=== PATIENT | female | born 1980 | race Caucasian/White ===

== ENCOUNTER 2017-05-29 13:59 | Inpatient (IN) | payer MEDICAID ==
[~2017-05-29] VITALS: Ht 149.9 cm; Wt 52.5 kg
[~2017-05-29 13:59] MED LIST: BUME0.5T3 PO; CYCL1TAB18 PO; LISI2.5T47 PO; METO25TA62 PO; POTA20TA53 PO; RIFA550T PO; SODIPOW PO
[2017-05-29 14:47] LABS: Basophils # (auto) 0.1 uL; Basophils % (auto) 0.5 % (0.0-2.0); Eosinophils # (auto) 0.1 uL; Monocytes # (auto) 0.5 uL; Neutrophils # (auto) 9.3 uL; Nucleated Red Blood Cells % 0.7 %
[2017-05-29 14:49] LABS: Eosinophils % (auto) 0.7 % (0.0-7.0); Hematocrit 44.9 % (36.0-46.0); Hemoglobin 13.3 g/dL (12.2-16.2); Lymphocytes # (auto) 1.7 uL; Lymphocytes % (auto) 14.8 % (10.0-50.0); Mean Corpuscular Hemoglobin 21.5 pg (28.0-32.0); Mean Corpuscular Hgb Conc. 29.7 g/dL (32.0-36.0); Mean Corpuscular Volume 72.5 fL (80.0-100.0); Mean Platelet Volume 7.9 fL (6.9-10.8); Platelet Count (auto) 373 10^3/uL (140-450); White Blood Cell 11.6 10^3/uL (4.4-10.8)
[2017-05-29 15:05] LABS: Albumin 2.6 g/dL (3.4-5.0); BUN/Creatinine Ratio 23.6; Bilirubin, Total 0.5 mg/dL (0.2-1.0); Calcium 8.4 mg/dL (8.5-10.1); Potassium 5.3 mmol/L (3.5-5.1); Total Protein 7.7 g/dL (6.4-8.2)
[2017-05-29 15:22] LABS: Red Cell Distribution Width 23.1 % (11.8-14.3)
[2017-05-29 16:05] LABS: Platelet Estimate Adequate
[2017-05-29 16:06] LABS: Anisocytosis Moderate; Hypochromia Moderate; Microcytosis Moderate
[2017-05-29] MEDS ORDERED: SODIUM CHLORIDE 0.9% 500 ML IVB ONE (17:59)
[2017-05-29] MEDS ORDERED: MORPHINE SULF INJ 2 MG/ML SYRINGE 1ML IV ONE (18:00)
[2017-05-29] MEDS ORDERED: ONDANSETRON HCL 4 MG/2 ML VIAL IV ONE (18:00)
[2017-05-29 18:40] LABS: INR 1.23 (0.9-1.15); Partial Thromboplastin Time 30.4 sec (22.64-33.71); Prothrombin Time 13.4 sec (9.37-12.3)
[2017-05-29] MEDS ORDERED: diphenhdrAMINE HCL 50 MG/1 ML VL IV ONE (19:00)
[2017-05-29] MEDS ORDERED: LABETALOL HCL 5 MG/ML 4ML SYRINGE IV ONE (20:00)
[2017-05-29] MEDS ORDERED: cefTRIAXone 1GM/50ML D5W 50 ML IV ONE (21:00)
[2017-05-30] MEDS ORDERED: NITROGLYCERIN 0.4 MG SL TAB SL PRN (00:45)
[2017-05-30] MEDS ORDERED: SODIUM BICARBONATE 8.4 % INJ 50ML VIAL IV ONE (00:45)
[2017-05-30] MEDS ORDERED: ACETAMINOPHEN 500 MG TAB PO PRN (01:30)
[2017-05-30] MEDS ORDERED: TEMAZEPAM 15 MG CAP PO PRN (01:30)
[2017-05-30] MEDS ORDERED: ONDANSETRON HCL 4 MG/2 ML VIAL IV PRN (01:30)
[2017-05-30] MEDS: SODIUM CHLORIDE 0.9% 1,000 ML IV SCH ×3 (01:58→22:10)
[2017-05-30] MEDS: SODIUM BICARBONATE 650 MG TAB PO SCH ×3 (06:27→22:34)
[2017-05-30] MEDS: HYDROcodone-ACET 5/325MG TAB PO PRN ×2 (08:31→18:28)
[2017-05-30 08:32] LABS: Basophils # (auto) 0.1 uL; Basophils % (auto) 0.4 % (0.0-2.0); Eosinophils # (auto) 0.2 uL; Eosinophils % (auto) 1.3 % (0.0-7.0); Hematocrit 38.9 % (36.0-46.0); Hemoglobin 11.5 g/dL (12.2-16.2); Lymphocytes # (auto) 1.1 uL; Mean Corpuscular Hemoglobin 21.3 pg (28.0-32.0); Mean Corpuscular Hgb Conc. 29.7 g/dL (32.0-36.0); Mean Corpuscular Volume 71.9 fL (80.0-100.0); Mean Platelet Volume 8.1 fL (6.9-10.8); Monocytes # (auto) 1.2 uL; Monocytes % (auto) 8.4 % (0.0-12.0); Neutrophils # (auto) 11.4 uL; Neutrophils % (auto) 81.9 % (37.0-80.0); Nucleated Red Blood Cells % 0.5 %; Platelet Count (auto) 230 10^3/uL (140-450); Red Cell Distribution Width 22.4 % (11.8-14.3); White Blood Cell 13.9 10^3/uL (4.4-10.8)
[2017-05-30] MEDS: MORPHINE SULF INJ 2 MG/ML SYRINGE 1ML IV PRN ×3 (09:03→20:09)
[2017-05-30 09:12] LABS: Anisocytosis Slight; Hypochromia Moderate; Microcytosis Moderate; Ovalocytes FEW; Platelet Estimate Adequate
[2017-05-30 09:48] LABS: Albumin 2.1 g/dL (3.4-5.0); BUN/Creatinine Ratio 25.4; Bilirubin, Total 0.4 mg/dL (0.2-1.0); Calcium 7.3 mg/dL (8.5-10.1); Potassium 4.5 mmol/L (3.5-5.1)
[2017-05-30] MEDS: METOPROLOL SUCCINATE XL 50 MG TAB PO SCH (09:55)
[2017-05-30 11:07] VITALS: BP 146/100
[2017-05-30] MEDS ORDERED: diphenhdrAMINE HCL 25 MG CAP PO ONE (13:00)
[2017-05-30 13:05] VITALS: BP 128/83
[2017-05-30] MEDS ORDERED: SODI650T PO (15:22)
[2017-05-30 16:24] VITALS: BP 128/86
[2017-05-30 18:37] LABS: Urine Bilirubin Negative (Negative); Urine Blood 3+ /uL (Negative); Urine Color Yellow (Yellow); Urine Glucose Normal (Normal); Urine Ketone Negative (Negative); Urine Mucus MODERATE (None Seen); Urine Nitrite POSITIVE (Negative); Urine RBC 1110 /hpf (0 - 4); Urine Squamous Epithelial Cell MANY /hpf (<5); Urine Urobilinogen Normal (Negative); Urine WBC Clumps PRESENT /hpf (None Seen); Urine pH 6.5 (5.0-8.0)
[2017-05-30 20:00] VITALS: BP 122/86
[2017-05-30 22:00] VITALS: BP 122/86
[2017-05-30] MEDS: diphenhdrAMINE HCL 25 MG CAP PO PRN (22:48)
[2017-05-31] MEDS: MORPHINE SULF INJ 2 MG/ML SYRINGE 1ML IV PRN ×6 (03:21→21:36)
[2017-05-31 05:16] VITALS: BP 113/74
[2017-05-31] MEDS: SODIUM BICARBONATE 650 MG TAB PO SCH ×3 (06:23→21:36)
[2017-05-31] MEDS: SODIUM CHLORIDE 0.9% 1,000 ML IV SCH ×2 (07:45→17:50)
[2017-05-31 08:42] LABS: Albumin 2.2 g/dL (3.4-5.0); BUN/Creatinine Ratio 23.6; Bilirubin, Total 0.2 mg/dL (0.2-1.0); Calcium 7.5 mg/dL (8.5-10.1); Potassium 4.4 mmol/L (3.5-5.1); Total Protein 6.2 g/dL (6.4-8.2)
[2017-05-31] MEDS ORDERED: IOTHALAMATE MEGLUMINE INJ 250ML BOT UR ONE (09:11)
[2017-05-31 09:19] VITALS: BP 124/82
[2017-05-31 09:52] LABS: Basophils # (auto) 0.1 uL; Basophils % (auto) 1.2 % (0.0-2.0); Eosinophils # (auto) 0.2 uL; Eosinophils % (auto) 3.3 % (0.0-7.0); Hematocrit 33.4 % (36.0-46.0); Hemoglobin 9.6 g/dL (12.2-16.2); Lymphocytes # (auto) 0.9 uL; Lymphocytes % (auto) 12.3 % (10.0-50.0); Mean Corpuscular Hemoglobin 21.5 pg (28.0-32.0); Mean Corpuscular Hgb Conc. 28.7 g/dL (32.0-36.0); Mean Platelet Volume 7.7 fL (6.9-10.8); Monocytes # (auto) 0.4 uL; Neutrophils # (auto) 5.3 uL; Neutrophils % (auto) 77.2 % (37.0-80.0); Nucleated Red Blood Cells % 0.4 %; Platelet Count (auto) 201 10^3/uL (140-450); Red Cell Distribution Width 22.7 % (11.8-14.3); White Blood Cell 6.9 10^3/uL (4.4-10.8)
[2017-05-31 09:54] LABS: Platelet Estimate Adequate
[2017-05-31 09:55] LABS: Burr Cells MODERATE
[2017-05-31 09:56] LABS: Anisocytosis Moderate; Microcytosis Moderate; Ovalocytes FEW
[2017-05-31 09:57] LABS: Hypochromia Moderate; Tear Drop Cells FEW
[2017-05-31] MEDS: METOPROLOL SUCCINATE XL 50 MG TAB PO SCH (10:31)
[2017-05-31 14:38] VITALS: BP 150/104
[2017-05-31 17:37] VITALS: BP 154/110
[2017-05-31 22:00] VITALS: BP 145/90
[2017-06-01] MEDS: MORPHINE SULF INJ 2 MG/ML SYRINGE 1ML IV PRN ×4 (01:24→21:17)
[2017-06-01] MEDS: SODIUM CHLORIDE 0.9% 1,000 ML IV SCH ×2 (04:45→16:50)
[2017-06-01 05:26] VITALS: BP 122/88
[2017-06-01] MEDS: SODIUM BICARBONATE 650 MG TAB PO SCH ×3 (05:34→21:16)
[2017-06-01 07:01] LABS: Basophils # (auto) 0 uL; Basophils % (auto) 0.5 % (0.0-2.0); Eosinophils # (auto) 0.1 uL; Eosinophils % (auto) 1.9 % (0.0-7.0); Hematocrit 30.1 % (36.0-46.0); Hemoglobin 9.2 g/dL (12.2-16.2); Lymphocytes % (auto) 14.2 % (10.0-50.0); Mean Corpuscular Hemoglobin 22.7 pg (28.0-32.0); Mean Corpuscular Hgb Conc. 30.5 g/dL (32.0-36.0); Mean Corpuscular Volume 74.6 fL (80.0-100.0); Monocytes # (auto) 0.5 uL; Monocytes % (auto) 6.8 % (0.0-12.0); Neutrophils # (auto) 5.3 uL; Neutrophils % (auto) 76.6 % (37.0-80.0); Nucleated Red Blood Cells % 0.3 %; Platelet Count (auto) 227 10^3/uL (140-450)
[2017-06-01 07:15] LABS: Red Cell Distribution Width 22.5 % (11.8-14.3)
[2017-06-01 07:21] LABS: Albumin 2.2 g/dL (3.4-5.0); BUN/Creatinine Ratio 21.5; Bilirubin, Total 0.2 mg/dL (0.2-1.0); Calcium 7.5 mg/dL (8.5-10.1); Potassium 4.1 mmol/L (3.5-5.1); Total Protein 6.1 g/dL (6.4-8.2)
[2017-06-01 09:17] VITALS: BP 133/82
[2017-06-01 11:06] LABS: Anisocytosis Moderate; Microcytosis Moderate
[2017-06-01 11:07] LABS: Ovalocytes FEW; Tear Drop Cells FEW
[2017-06-01 11:08] LABS: Hypochromia Moderate
[2017-06-01 11:09] LABS: Schistocytes FEW
[2017-06-01 11:10] LABS: Platelet Estimate Adequate
[2017-06-01 13:00] VITALS: BP 155/94
[2017-06-01 16:48] VITALS: BP 155/112
[2017-06-01] MEDS: METOPROLOL SUCCINATE XL 50 MG TAB PO SCH (16:49)
[2017-06-01 22:00] VITALS: BP 153/107
[2017-06-01] MEDS ORDERED: amLODIPine BESYLATE 5 MG TAB PO SCH (22:00)
[2017-06-02] MEDS: MORPHINE SULF INJ 2 MG/ML SYRINGE 1ML IV PRN ×3 (01:01→09:26)
[2017-06-02] MEDS ORDERED: SODIUM CHLORIDE 0.9% 1,000 ML IV SCH (01:45)
[2017-06-02 05:00] VITALS: BP 152/100
[2017-06-02 06:56] LABS: Basophils # (auto) 0.2 uL; Eosinophils # (auto) 0.2 uL; Eosinophils % (auto) 1.9 % (0.0-7.0); Hematocrit 32.7 % (36.0-46.0); Lymphocytes # (auto) 1.2 uL; Lymphocytes % (auto) 13.7 % (10.0-50.0); Mean Corpuscular Hemoglobin 22.5 pg (28.0-32.0); Mean Corpuscular Hgb Conc. 30.5 g/dL (32.0-36.0); Mean Corpuscular Volume 73.8 fL (80.0-100.0); Monocytes # (auto) 0.6 uL; Monocytes % (auto) 7.1 % (0.0-12.0); Neutrophils # (auto) 6.7 uL; Neutrophils % (auto) 75.3 % (37.0-80.0); Nucleated Red Blood Cells % 0.2 %; Platelet Count (auto) 241 10^3/uL (140-450); White Blood Cell 8.8 10^3/uL (4.4-10.8)
[2017-06-02 06:58] LABS: Red Cell Distribution Width 22.5 % (11.8-14.3)
[2017-06-02 07:09] LABS: BUN/Creatinine Ratio 18.1; Calcium 7.8 mg/dL (8.5-10.1); Potassium 4.6 mmol/L (3.5-5.1)
[2017-06-02 07:51] LABS: Anisocytosis Slight; Hypochromia Moderate; Microcytosis Moderate; Ovalocytes FEW; Platelet Estimate Adequate
[2017-06-02 09:00] VITALS: BP 153/115
[2017-06-02] MEDS: METOPROLOL SUCCINATE XL 50 MG TAB PO SCH (09:39)
[2017-06-02] MEDS: SODIUM BICARBONATE 650 MG TAB PO SCH (09:39)
[2017-06-02] MEDS: diphenhdrAMINE HCL 25 MG CAP PO PRN (09:40)
[2017-06-02] MEDS ORDERED: LABETALOL HCL 5 MG/ML 4ML SYRINGE IV ONE (10:00)
[2017-06-02 11:56] VITALS: BP 155/110
[2017-06-02 13:00] VITALS: BP 173/120
== END 2017-06-02 15:00 | disposition home or self-care (01) | DRG 720 ==
LOC: ER 14:08 → TELE 14:09 → TELE-WESTW 05-30 11:14
PROVIDERS: ADMIT Nurse Practitioner Family; ATTEND Internal Medicine
PROC: BT1BZZZ Fluoroscopy of Bladder and Urethra (ICD-10-PCS; principal; 2017-06-01)
DX: A41.9 Sepsis, unspecified organism (principal); E43 Unspecified severe protein-calorie malnutrition; I13.0 Hypertensive heart and chronic kidney disease with heart failure and stage 1 through stage 4 chronic kidney disease, or unspecified chronic kidney disease; N13.30 Unspecified hydronephrosis; K80.10 Calculus of gallbladder with chronic cholecystitis without obstruction; E83.51 Hypocalcemia; N30.80 Other cystitis without hematuria; M41.9 Scoliosis, unspecified; N18.3 Chronic kidney disease, stage 3 (moderate); N81.10 Cystocele, unspecified; E87.5 Hyperkalemia; B19.20 Unspecified viral hepatitis C without hepatic coma; N31.2 Flaccid neuropathic bladder, not elsewhere classified; E87.6 Hypokalemia; M54.9 Dorsalgia, unspecified; Z68.23 Body mass index [BMI] 23.0-23.9, adult; Z88.1 Allergy status to other antibiotic agents; Z88.0 Allergy status to penicillin; Z88.2 Allergy status to sulfonamides; Z88.8 Allergy status to other drugs, medicaments and biological substances; Z87.440 Personal history of urinary (tract) infections; Z91.19 Patient's noncompliance with other medical treatment and regimen; N39.0 Urinary tract infection, site not specified
CPT/HCPCS: 36415; 71010; 74176; 74430; 80048; 80053; 81001; 81025; 82140; 82150; 83690; 83735; 85025; 85610; 85730; 87086; 94761; 96361; 96365; 96375; J0696; J2405; J3490

== ENCOUNTER 2017-09-24 05:59 | Inpatient (IN) | payer MEDICAID ==
[~2017-09-24] VITALS: Ht 149.9 cm; Wt 40.5 kg
[~2017-09-24 05:59] MED LIST changes: -BUME0.5T3 PO; -CYCL1TAB18 PO; +SODI650T PO; -SODIPOW PO
[2017-09-24 07:14] LABS: Basophils % (auto) 0.5 % (0.0-2.0); Eosinophils # (auto) 0.1 uL; Eosinophils % (auto) 0.9 % (0.0-7.0); Hemoglobin 12.4 g/dL (12.2-16.2); Mean Corpuscular Volume 74.7 fL (80.0-100.0); Monocytes # (auto) 0.6 uL; Nucleated Red Blood Cells % 0.2 %
[2017-09-24 07:16] LABS: Basophils # (auto) 0 uL; Hematocrit 39.8 % (36.0-46.0); Lymphocytes % (auto) 9.4 % (10.0-50.0); Mean Corpuscular Hemoglobin 23.3 pg (28.0-32.0); Mean Corpuscular Hgb Conc. 31.1 g/dL (32.0-36.0); Monocytes % (auto) 5.4 % (0.0-12.0); Neutrophils # (auto) 8.8 uL; Neutrophils % (auto) 83.8 % (37.0-80.0); Platelet Count (auto) 246 10^3/uL (140-450); Red Blood Cells 5.33 10^6/uL (4.0-5.20); White Blood Cell 10.5 10^3/uL (4.4-10.8)
[2017-09-24 07:17] LABS: Red Cell Distribution Width 21.9 % (11.8-14.3)
[2017-09-24 07:30] LABS: Albumin 3.4 g/dL (3.4-5.0); Calcium 7.7 mg/dL (8.5-10.1)
[2017-09-24 07:33] LABS: Bilirubin, Total 0.3 mg/dL (0.2-1.0); Total Protein 7.8 g/dL (6.4-8.2)
[2017-09-24 07:37] LABS: BUN/Creatinine Ratio 26.9; Potassium 2.6 mmol/L (3.5-5.1)
[2017-09-24 07:45] LABS: INR 1.03 (0.9-1.15); Partial Thromboplastin Time 34.4 sec (22.64-33.71); Prothrombin Time 11.2 sec (9.37-12.3)
[2017-09-24] MEDS ORDERED: SODIUM CHLORIDE 0.9% 500 ML IVB ONE (08:30)
[2017-09-24] MEDS ORDERED: POTASSIUM CHL 20MEQ/100ML 100 ML IV ONE (08:45)
[2017-09-24] MEDS ORDERED: SODIUM BICARBONATE 8.4 % INJ 50ML VIAL IV ONE (10:00)
[2017-09-24] MEDS ORDERED: LACTULOSE 20Gm/30ML SOLN PO ONE (10:00)
[2017-09-24] MEDS ORDERED: SODIUM BICARBONATE 50ML VIAL 50 ML in D5W 5% 1,000 ML IV SCH (10:00)
[2017-09-24] MEDS: LACTULOSE 20Gm/30ML SOLN PO SCH ×4 (10:00→22:14)
[2017-09-24] MEDS ORDERED: TEMAZEPAM 15 MG CAP PO PRN (10:15)
[2017-09-24] MEDS ORDERED: PANTOPRAZOLE 40 MG/10 ML VIAL IV ONE (10:15)
[2017-09-24] MEDS ORDERED: NITROGLYCERIN 0.4 MG SL TAB SL PRN (10:15)
[2017-09-24] MEDS ORDERED: LACTULOSE 20Gm/30ML SOLN PO PRN (10:15)
[2017-09-24] MEDS ORDERED: MORPHINE SULFATE 4 MG/ML SYR/VIAL IV PRN ×2 (10:15)
[2017-09-24 10:32] LABS: Amylase 107 U/L (25-115); Lipase 880 U/L (73-393)
[2017-09-24] MEDS ORDERED: TRAM50TA2 PO (11:43)
[2017-09-24] MEDS ORDERED: METO25TA5 PO (11:43)
[2017-09-24] MEDS ORDERED: HYDR200T36 PO (11:45)
[2017-09-24] MEDS: LABETALOL HCL 5 MG/ML ML 20ML VIAL IV PRN (11:46)
[2017-09-24] MEDS: metroNIDAZOLE 500MG/100ML 100 ML IV SCH ×2 (12:00→17:26)
[2017-09-24] MEDS ORDERED: CEFTRIAXONE SODIUM 2 GM in D5W 5% 50 ML IV ONE (12:30)
[2017-09-24] MEDS: MORPHINE SULFATE 4 MG/ML SYR/VIAL IV PRN (13:35)
[2017-09-24 14:25] LABS: Urine Bacteria MOD /hpf (None Seen); Urine Blood 1+ /uL (Negative); Urine Mucus FEW (None Seen); Urine Specific Gravity 1.009 (1.001-1.035); Urine WBC 166 /hpf (0 - 5); Urine WBC Clumps PRESENT /hpf (None Seen)
[2017-09-24] MEDS: PROMETHAZINE HCL 25 MG/ML 1ML IV PRN (17:22)
[2017-09-24] MEDS: DEXTROSE IV SCH (17:39)
[2017-09-24] MEDS: SODIUM BICARBONATE IV SCH (17:39)
[2017-09-25] MEDS ORDERED: metroNIDAZOLE 500 MG TAB PO ONE (01:00)
[2017-09-25] MEDS: LACTULOSE 20Gm/30ML SOLN PO SCH ×6 (03:15→21:28)
[2017-09-25 06:24] LABS: Basophils # (auto) 0 uL; Lymphocytes # (auto) 0.4 uL; Monocytes # (auto) 0.7 uL
[2017-09-25 06:27] LABS: Basophils % (auto) 0.5 % (0.0-2.0); Eosinophils # (auto) 0.2 uL; Eosinophils % (auto) 2.2 % (0.0-7.0); Hematocrit 30.8 % (36.0-46.0); Lymphocytes % (auto) 5.8 % (10.0-50.0); Mean Corpuscular Hemoglobin 23.2 pg (28.0-32.0); Mean Corpuscular Hgb Conc. 32.4 g/dL (32.0-36.0); Mean Corpuscular Volume 71.6 fL (80.0-100.0); Monocytes % (auto) 10.3 % (0.0-12.0); Neutrophils # (auto) 5.6 uL; Neutrophils % (auto) 81.2 % (37.0-80.0); Nucleated Red Blood Cells % 0.2 %; Platelet Count (auto) 249 10^3/uL (140-450); Red Blood Cells 4.31 10^6/uL (4.0-5.20); White Blood Cell 6.9 10^3/uL (4.4-10.8)
[2017-09-25 06:40] LABS: Red Cell Distribution Width 22.3 % (11.8-14.3)
[2017-09-25] MEDS: PROMETHAZINE HCL 25 MG/ML 1ML IV PRN ×4 (06:44→22:22)
[2017-09-25 06:46] LABS: Albumin 2.9 g/dL (3.4-5.0); BUN/Creatinine Ratio 23.5; Bilirubin, Total 0.4 mg/dL (0.2-1.0); Total Protein 6.5 g/dL (6.4-8.2)
[2017-09-25 06:59] LABS: Potassium 1.8 mmol/L (3.5-5.1)
[2017-09-25] MEDS ORDERED: POTASSIUM CHLORIDE 60 MEQ, LIDOCAINE 1% (LOCAL ANESTH.) 6 ML in SODIUM CHL 0.9% 500 ML IV ONE (07:30)
[2017-09-25] MEDS: DEXTROSE IV SCH ×2 (08:23→17:25)
[2017-09-25] MEDS: SODIUM BICARBONATE IV SCH ×2 (08:23→17:25)
[2017-09-25] MEDS: cefTRIAXone 1GM/10ml IVPUSH 10 ML IV SCH (10:05)
[2017-09-25] MEDS: PANTOPRAZOLE 40 MG/10 ML VIAL IV SCH (10:11)
[2017-09-25] MEDS: ENOXAPARIN SOD 30 MG/0.3 ML SYRINGE SC SCH (10:13)
[2017-09-25] MEDS: MORPHINE SULFATE 4 MG/ML SYR/VIAL IV PRN ×2 (16:56→22:21)
[2017-09-25] MEDS ORDERED: POTASSIUM CHL 10% (20 MEQ/15ML) 15ml ORAL SOLN NG ONE (17:00)
[2017-09-25] MEDS ORDERED: POTASSIUM CHLORIDE 40 MEQ, LIDOCAINE 1% (LOCAL ANESTH.) 4 ML in SODIUM CHL 0.9% 100 ML IV ONE ×2 (17:00→22:00)
[2017-09-25] MEDS: LABETALOL HCL 5 MG/ML ML 20ML VIAL IV PRN ×3 (17:01→23:00)
[2017-09-25] MEDS: SOD CHL 0.45% WITH 20MEQ KCL 1,000 ML IV SCH (20:39)
[2017-09-25] MEDS ORDERED: POTASSIUM CHL 20 Meq TABLET PO ONE ×2 (21:34→21:39)
[2017-09-25] MEDS ORDERED: POTASSIUM CHL 20MEQ/100ML 200 ML IV ONE (21:52)
[2017-09-25] MEDS ORDERED: LIDOCAINE 1% HCL (LOCAL ANESTH.) INJ 20ML MDV ONE (21:52)
[2017-09-25] MEDS ORDERED: POTASSIUM CHL 10% (20 MEQ/15ML) 15ml ORAL SOLN PO ONE (22:00)
[2017-09-26] MEDS: LACTULOSE 20Gm/30ML SOLN PO SCH ×6 (01:22→22:00)
[2017-09-26] MEDS: LABETALOL HCL 5 MG/ML ML 20ML VIAL IV PRN ×2 (01:39→11:47)
[2017-09-26] MEDS: LORazepam 0.5 MG TAB PO PRN (01:44)
[2017-09-26] MEDS: SOD CHL 0.45% WITH 20MEQ KCL 1,000 ML IV SCH ×3 (03:00→20:35)
[2017-09-26] MEDS: PROMETHAZINE HCL 25 MG/ML 1ML IV PRN (03:37)
[2017-09-26] MEDS: MORPHINE SULFATE 4 MG/ML SYR/VIAL IV PRN (03:37)
[2017-09-26 07:32] LABS: Hemoglobin 8.7 g/dL (12.2-16.2); Red Blood Cells 3.76 10^6/uL (4.0-5.20)
[2017-09-26 07:34] LABS: Hematocrit 27.4 % (36.0-46.0); Mean Corpuscular Hemoglobin 23.3 pg (28.0-32.0); Mean Corpuscular Hgb Conc. 31.9 g/dL (32.0-36.0); Platelet Count (auto) 179 10^3/uL (140-450); White Blood Cell 4.2 10^3/uL (4.4-10.8)
[2017-09-26 07:35] LABS: Red Cell Distribution Width 21.8 % (11.8-14.3)
[2017-09-26 07:37] LABS: Band Neutrophils % (manual) 0; Basophils % (manual) 0 (0.0-2.0); Metamyelocytes % 0; Myelocytes % 0; Promyelocytes % 0
[2017-09-26 07:38] LABS: Blast Cells 0; Reactive Lymphocytes 0
[2017-09-26 08:11] LABS: Albumin 2.6 g/dL (3.4-5.0); BUN/Creatinine Ratio 18.1; Bilirubin, Total 0.3 mg/dL (0.2-1.0); Calcium 6.6 mg/dL (8.5-10.1); Potassium 3.2 mmol/L (3.5-5.1)
[2017-09-26] MEDS: PANTOPRAZOLE 40 MG/10 ML VIAL IV SCH (09:26)
[2017-09-26] MEDS: cefTRIAXone 1GM/10ml IVPUSH 10 ML IV SCH (09:26)
[2017-09-26] MEDS: ENOXAPARIN SOD 30 MG/0.3 ML SYRINGE SC SCH (09:27)
[2017-09-26] MEDS ORDERED: POTASSIUM CHL 20 Meq TABLET PO ONE ×2 (09:45→09:47)
[2017-09-26] MEDS ORDERED: HYDROcodone-ACET 5/325MG TAB PO PRN (10:00)
[2017-09-26 10:58] LABS: Eosinophils % (manual) 6 (0-7); Lymphocytes % (manual) 25 (10.0-50.0); Monocytes % (manual) 17 (0-12)
[2017-09-26 13:00] VITALS: BP 152/98
[2017-09-26] MEDS: HYDROcodone-ACET 5/325MG TAB PO PRN (15:17)
[2017-09-26 17:00] VITALS: BP 143/97
[2017-09-26 21:51] VITALS: BP 121/79
[2017-09-27] MEDS: LACTULOSE 20Gm/30ML SOLN PO SCH ×6 (02:00→22:00)
[2017-09-27] MEDS: SOD CHL 0.45% WITH 20MEQ KCL 1,000 ML IV SCH (04:40)
[2017-09-27 04:51] VITALS: BP 138/88
[2017-09-27] MEDS: HYDROcodone-ACET 5/325MG TAB PO PRN ×3 (06:35→22:13)
[2017-09-27 07:09] LABS: Basophils # (auto) 0 uL; Basophils % (auto) 0.4 % (0.0-2.0); Eosinophils # (auto) 0.3 uL; Hemoglobin 9.8 g/dL (12.2-16.2); Lymphocytes # (auto) 0.8 uL; Monocytes # (auto) 0.4 uL; Neutrophils # (auto) 3.1 uL; Nucleated Red Blood Cells % 0.1 %
[2017-09-27 07:16] LABS: Albumin 2.7 g/dL (3.4-5.0); Calcium 8.1 mg/dL (8.5-10.1); Potassium 4.9 mmol/L (3.5-5.1)
[2017-09-27 07:19] LABS: BUN/Creatinine Ratio 18.7; Eosinophils % (auto) 5.6 % (0.0-7.0); Hematocrit 30.9 % (36.0-46.0); Lymphocytes % (auto) 16.6 % (10.0-50.0); Mean Corpuscular Hemoglobin 23.3 pg (28.0-32.0); Mean Corpuscular Hgb Conc. 31.6 g/dL (32.0-36.0); Mean Corpuscular Volume 73.5 fL (80.0-100.0); Monocytes % (auto) 8.5 % (0.0-12.0); Neutrophils % (auto) 68.9 % (37.0-80.0); Platelet Count (auto) 199 10^3/uL (140-450); White Blood Cell 4.5 10^3/uL (4.4-10.8)
[2017-09-27 07:22] LABS: Red Cell Distribution Width 23.1 % (11.8-14.3)
[2017-09-27 07:24] LABS: Bilirubin, Total 0.4 mg/dL (0.2-1.0); Total Protein 6.2 g/dL (6.4-8.2)
[2017-09-27 08:00] VITALS: BP 156/107
[2017-09-27] MEDS: ENOXAPARIN SOD 30 MG/0.3 ML SYRINGE SC SCH (09:08)
[2017-09-27] MEDS: SODIUM BICARBONATE 650 MG TAB PO SCH ×3 (09:19→22:13)
[2017-09-27] MEDS: PANTOPRAZOLE 40 MG/10 ML VIAL IV SCH (09:19)
[2017-09-27] MEDS: cefTRIAXone 1GM/10ml IVPUSH 10 ML IV SCH (09:19)
[2017-09-27] MEDS: SOD CHL 0.45% 1,000 ML IV SCH (11:08)
[2017-09-27 12:00] VITALS: BP 159/114
[2017-09-27] MEDS: LABETALOL HCL 5 MG/ML ML 20ML VIAL IV PRN ×3 (16:13→22:14)
[2017-09-27 17:00] VITALS: BP 161/123
[2017-09-27] MEDS: LORazepam 0.5 MG TAB PO PRN (17:36)
[2017-09-27 22:17] VITALS: BP 160/107
[2017-09-28] MEDS: LACTULOSE 20Gm/30ML SOLN PO SCH ×4 (02:00→14:00)
[2017-09-28] MEDS: SOD CHL 0.45% 1,000 ML IV SCH ×2 (04:30→14:30)
[2017-09-28 05:00] VITALS: BP 142/94
[2017-09-28] MEDS: SODIUM BICARBONATE 650 MG TAB PO SCH ×2 (06:10→14:00)
[2017-09-28] MEDS: LORazepam 0.5 MG TAB PO PRN (06:25)
[2017-09-28] MEDS: HYDROcodone-ACET 5/325MG TAB PO PRN ×2 (06:25→12:37)
[2017-09-28] MEDS: LABETALOL HCL 5 MG/ML ML 20ML VIAL IV PRN (08:12)
[2017-09-28 08:40] VITALS: BP 171/116
[2017-09-28] MEDS: cefTRIAXone 1GM/10ml IVPUSH 10 ML IV SCH (09:01)
[2017-09-28] MEDS: ENOXAPARIN SOD 30 MG/0.3 ML SYRINGE SC SCH (09:01)
[2017-09-28] MEDS: PANTOPRAZOLE 40 MG/10 ML VIAL IV SCH (09:01)
[2017-09-28 12:50] LABS: Basophils # (auto) 0 uL; Eosinophils # (auto) 0.3 uL; Lymphocytes # (auto) 0.8 uL; Lymphocytes % (auto) 14.6 % (10.0-50.0); Monocytes # (auto) 0.5 uL; Nucleated Red Blood Cells % 0.1 %; White Blood Cell 5.6 10^3/uL (4.4-10.8)
[2017-09-28 12:52] LABS: Basophils % (auto) 0.2 % (0.0-2.0); Hematocrit 33.4 % (36.0-46.0); Hemoglobin 10.2 g/dL (12.2-16.2); Mean Corpuscular Hemoglobin 22.9 pg (28.0-32.0); Mean Corpuscular Hgb Conc. 30.7 g/dL (32.0-36.0); Mean Corpuscular Volume 74.7 fL (80.0-100.0); Monocytes % (auto) 9.7 % (0.0-12.0); Neutrophils # (auto) 3.9 uL; Neutrophils % (auto) 70.5 % (37.0-80.0); Platelet Count (auto) 199 10^3/uL (140-450); Red Blood Cells 4.47 10^6/uL (4.0-5.20)
[2017-09-28 12:55] LABS: Red Cell Distribution Width 23.3 % (11.8-14.3)
[2017-09-28 13:00] VITALS: BP 166/109
[2017-09-28 13:07] LABS: BUN/Creatinine Ratio 18.9; Calcium 7.4 mg/dL (8.5-10.1)
== END 2017-09-28 15:28 | disposition home or self-care (01) | DRG 469 ==
LOC: ER 05:59 → TELE 06:00 → TELE-CENTR 09-26 12:20
PROVIDERS: ADMIT Internal Medicine; ATTEND Internal Medicine
DX: N17.9 Acute kidney failure, unspecified (principal); E87.2 Acidosis; E87.0 Hyperosmolality and hypernatremia; M32.9 Systemic lupus erythematosus, unspecified; E87.8 Other disorders of electrolyte and fluid balance, not elsewhere classified; E86.0 Dehydration; N13.30 Unspecified hydronephrosis; K72.90 Hepatic failure, unspecified without coma; E83.51 Hypocalcemia; I13.10 Hypertensive heart and chronic kidney disease without heart failure, with stage 1 through stage 4 chronic kidney disease, or unspecified chronic kidney disease; N18.9 Chronic kidney disease, unspecified; N39.0 Urinary tract infection, site not specified; K59.00 Constipation, unspecified; N05.9 Unspecified nephritic syndrome with unspecified morphologic changes; F41.9 Anxiety disorder, unspecified; G47.00 Insomnia, unspecified; E87.6 Hypokalemia; B19.20 Unspecified viral hepatitis C without hepatic coma; K74.60 Unspecified cirrhosis of liver; M06.9 Rheumatoid arthritis, unspecified; M19.90 Unspecified osteoarthritis, unspecified site; Z88.2 Allergy status to sulfonamides; Z88.0 Allergy status to penicillin; Z88.1 Allergy status to other antibiotic agents; Z79.899 Other long term (current) drug therapy
CPT/HCPCS: 36415; 36600; 71046; 74176; 76775; 80048; 80053; 80061; 81001; 81025; 82140; 82150; 82570; 82805; 83690; 83735; 83880; 84132; 84156; 84443; 84702; 85007; 85025; 85027; 85045; 85610; 85652; 85730; 87040; 87086; 94761; 96361; 96365; 96372; 96375; C9113; J0696; J2001; J3480; J3490; J7060

== ENCOUNTER 2017-12-02 07:37 | Inpatient (IN) | payer MEDICAID ==
[~2017-12-02] VITALS: Ht 149.9 cm; Wt 48.5 kg
[~2017-12-02 07:37] MED LIST changes: +HYDR200T36 PO; -LISI2.5T47 PO; +METO25TA5 PO; -METO25TA62 PO; -RIFA550T PO; +TRAM50TA2 PO
[2017-12-02] MEDS ORDERED: SODIUM CHLORIDE 0.9% 1,000 ML IV ONE (08:15)
[2017-12-02 09:38] LABS: Hemoglobin 11.7 g/dL (12.2-16.2); Monocytes # (auto) 0.3 uL
[2017-12-02 09:40] LABS: Basophils # (auto) 0 uL; Basophils % (auto) 0.4 % (0.0-2.0); Eosinophils # (auto) 0 uL; Eosinophils % (auto) 0.4 % (0.0-7.0); Hematocrit 38.9 % (36.0-46.0); Lymphocytes # (auto) 0.6 uL; Mean Corpuscular Hemoglobin 24.5 pg (28.0-32.0); Mean Corpuscular Hgb Conc. 30.2 g/dL (32.0-36.0); Mean Corpuscular Volume 81.2 fL (80.0-100.0); Monocytes % (auto) 3.2 % (0.0-12.0); Neutrophils # (auto) 9.5 uL; Nucleated Red Blood Cells % 0.1 %; Platelet Count (auto) 265 10^3/uL (140-450); White Blood Cell 10.6 10^3/uL (4.4-10.8)
[2017-12-02 09:48] LABS: INR 0.95 (0.9-1.15); Partial Thromboplastin Time 32.6 sec (22.64-33.71); Prothrombin Time 10.3 sec (9.37-12.3)
[2017-12-02 09:53] LABS: Red Cell Distribution Width 21.4 % (11.8-14.3)
[2017-12-02 09:54] LABS: Albumin 3.4 g/dL (3.4-5.0); BUN/Creatinine Ratio 28.6; Calcium 7.2 mg/dL (8.5-10.1); Magnesium 1.7 mg/dL (1.6-2.6)
[2017-12-02 09:57] LABS: Bilirubin, Total 0.4 mg/dL (0.2-1.0); Total Protein 7.6 g/dL (6.4-8.2)
[2017-12-02 10:00] LABS: Potassium 2.8 mmol/L (3.5-5.1)
[2017-12-02] MEDS ORDERED: DEXTROSE (50%) 50ML SYRG IV PRN (11:00)
[2017-12-02] MEDS ORDERED: cefTRIAXone 1GM/10ml IVPUSH 10 ML IV ONE (11:00)
[2017-12-02] MEDS ORDERED: MORPHINE SULFATE 8mg/ml INJ SDV IV PRN ×2 (11:00)
[2017-12-02] MEDS ORDERED: NITROGLYCERIN 0.4 MG SL TAB SL PRN (11:00)
[2017-12-02] MEDS ORDERED: LACTULOSE 20Gm/30ML SOLN PO ONE (11:15)
[2017-12-02] MEDS: SODIUM CHLORIDE 0.9% 1,000 ML IV SCH ×2 (11:16→17:39)
[2017-12-02 11:23] LABS: Amylase 72 U/L (25-115); Lipase 299 U/L (73-393)
[2017-12-02] MEDS ORDERED: POTASSIUM CHL 20 Meq TABLET PO ONE (11:45)
[2017-12-02] MEDS: MORPHINE SULFATE 8mg/ml INJ SDV IV PRN ×2 (12:08→22:02)
[2017-12-02] MEDS: PROMETHAZINE HCL 25 MG/ML 1ML IV PRN (12:09)
[2017-12-02] MEDS: ACCU-CHEK COMFORT CURVE STRIP VI SCH ×3 (12:13→21:18)
[2017-12-02] MEDS: METOPROLOL TARTRATE 25 MG TAB PO ONE ×2 (12:30→17:18)
[2017-12-02] MEDS ORDERED: HYDROXYCHLOROQUINE SULFATE 200 MG TAB PO ONE (12:30)
[2017-12-02] MEDS ORDERED: SODIUM BICARBONATE 8.4 % INJ 50ML VIAL IV ONE (12:45)
[2017-12-02] MEDS: POTASSIUM CHL 20MEQ/100ML 100 ML IV SCH ×2 (14:28→16:00)
[2017-12-02] MEDS: LACTULOSE 20Gm/30ML SOLN PO SCH ×3 (14:30→22:00)
[2017-12-02] MEDS: SODIUM BICARBONATE 650 MG TAB PO SCH ×2 (14:30→22:13)
[2017-12-02] MEDS: METOPROLOL TARTRATE 25 MG TAB PO SCH ×2 (22:01→23:14)
[2017-12-02 23:12] LABS: Urine Bacteria MANY /hpf (None Seen); Urine Blood 2+ /uL (Negative); Urine Specific Gravity 1.016 (1.001-1.035); Urine WBC 1118 /hpf (0 - 5); Urine WBC Clumps PRESENT /hpf (None Seen)
[2017-12-03] VITALS (12 sets, daily range): BP systolic 125–159; BP diastolic 70–94
[2017-12-03] MEDS: LACTULOSE 20Gm/30ML SOLN PO SCH ×6 (02:00→21:12)
[2017-12-03] MEDS: ACCU-CHEK COMFORT CURVE STRIP VI SCH ×6 (03:03→20:00)
[2017-12-03] MEDS ORDERED: NALOXONE HCL 0.4 MG/ML VIAL ONE (03:15)
[2017-12-03] MEDS ORDERED: ALBUMIN 5% 250 ML IV ONE ×2 (03:22→03:30)
[2017-12-03] MEDS ORDERED: NALOXONE HCL 0.4 MG/ML VIAL IV ONE (03:30)
[2017-12-03 04:11] LABS: Basophils # (auto) 0.1 uL; Basophils % (auto) 0.5 % (0.0-2.0); Eosinophils # (auto) 0.1 uL; Eosinophils % (auto) 1.2 % (0.0-7.0); Hematocrit 38.7 % (36.0-46.0); Hemoglobin 11.8 g/dL (12.2-16.2); Lymphocytes # (auto) 0.7 uL; Lymphocytes % (auto) 6.4 % (10.0-50.0); Mean Corpuscular Hemoglobin 24.2 pg (28.0-32.0); Mean Corpuscular Hgb Conc. 30.4 g/dL (32.0-36.0); Mean Corpuscular Volume 79.5 fL (80.0-100.0); Monocytes # (auto) 0.7 uL; Monocytes % (auto) 6.6 % (0.0-12.0); Neutrophils # (auto) 9.4 uL; Neutrophils % (auto) 85.3 % (37.0-80.0); Nucleated Red Blood Cells % 0.2 %; Platelet Count (auto) 251 10^3/uL (140-450); Red Blood Cells 4.87 10^6/uL (4.0-5.20); White Blood Cell 10.9 10^3/uL (4.4-10.8)
[2017-12-03 04:12] LABS: Red Cell Distribution Width 22.1 % (11.8-14.3)
[2017-12-03 04:20] LABS: Albumin 3.4 g/dL (3.4-5.0); Calcium 7.2 mg/dL (8.5-10.1); Potassium 3.1 mmol/L (3.5-5.1)
[2017-12-03 04:23] LABS: BUN/Creatinine Ratio 30.6; Bilirubin, Total 0.4 mg/dL (0.2-1.0); Total Protein 7.3 g/dL (6.4-8.2)
[2017-12-03] MEDS ORDERED: SODIUM BICARBONATE 50ML VIAL 100 ML in D5W 5% 1,000 ML IV SCH (04:45)
[2017-12-03] MEDS ORDERED: POTASSIUM CHLORIDE 20 MEQ, LIDOCAINE 1% (LOCAL ANESTH.) 2 ML in SODIUM CHL 0.9% 100 ML IV ONE (05:00)
[2017-12-03] MEDS ORDERED: SODIUM BICARBONATE 8.4% INJ 50ML SYRINGE ONE (05:00)
[2017-12-03] MEDS: SODIUM BICARBONATE 650 MG TAB PO SCH ×3 (05:33→21:12)
[2017-12-03 08:23] LABS: Cholesterol < 50 mg/dL (< 200); HDL Cholesterol 17 mg/dL (40-59); LDL Cholesterol 27 mg/dL (< 100); Triglycerides 39 mg/dL (< 150)
[2017-12-03] MEDS ORDERED: SODIUM BICARBONATE 50ML VIAL 150 ML in D5W 5% 1,000 ML IV SCH (11:15)
[2017-12-03] MEDS: cefTRIAXone 1GM/10ml IVPUSH 10 ML IV SCH (11:34)
[2017-12-03] MEDS: HYDROXYCHLOROQUINE SULFATE 200 MG TAB PO SCH (11:35)
[2017-12-03] MEDS: METOPROLOL TARTRATE 25 MG TAB PO SCH ×2 (11:35→21:12)
[2017-12-03] MEDS: POTASSIUM CHL 20 Meq TABLET PO SCH (11:35)
[2017-12-03] MEDS: SODIUM BICARBONATE 50ML VIAL 75 ML in D5W 5% 1,000 ML IV SCH ×2 (18:04→22:25)
[2017-12-04] VITALS (7 sets, daily range): BP systolic 147–163; BP diastolic 87–98
[2017-12-04] MEDS: LACTULOSE 20Gm/30ML SOLN PO SCH ×7 (02:00→22:27)
[2017-12-04] MEDS: ACCU-CHEK COMFORT CURVE STRIP VI SCH ×7 (04:00→23:46)
[2017-12-04] MEDS: SODIUM BICARBONATE 650 MG TAB PO SCH ×3 (05:34→21:23)
[2017-12-04] MEDS: SODIUM BICARBONATE 50ML VIAL 75 ML in D5W 5% 1,000 ML IV SCH ×3 (08:11→20:22)
[2017-12-04] MEDS: PROMETHAZINE HCL 25 MG/ML 1ML IV PRN (08:32)
[2017-12-04] MEDS: cefTRIAXone 1GM/10ml IVPUSH 10 ML IV SCH (09:00)
[2017-12-04] MEDS ORDERED: cloNIDine HCL 0.1 MG TAB PO PRN (09:45)
[2017-12-04] MEDS: HYDROXYCHLOROQUINE SULFATE 200 MG TAB PO SCH (10:00)
[2017-12-04] MEDS: traMADol HCL 50 MG TAB PO PRN ×3 (10:02→21:32)
[2017-12-04] MEDS: METOPROLOL TARTRATE 25 MG TAB PO SCH ×2 (10:02→21:27)
[2017-12-04] MEDS: POTASSIUM CHL 20 Meq TABLET PO SCH (10:02)
[2017-12-04 15:24] LABS: Basophils # (auto) 0 uL; Basophils % (auto) 0.4 % (0.0-2.0); Eosinophils # (auto) 0.1 uL; Eosinophils % (auto) 1.6 % (0.0-7.0); Hematocrit 33.5 % (36.0-46.0); Hemoglobin 10.5 g/dL (12.2-16.2); Lymphocytes # (auto) 0.6 uL; Lymphocytes % (auto) 8.3 % (10.0-50.0); Mean Corpuscular Hemoglobin 24.4 pg (28.0-32.0); Mean Corpuscular Hgb Conc. 31.3 g/dL (32.0-36.0); Monocytes # (auto) 1.1 uL; Monocytes % (auto) 14.7 % (0.0-12.0); Neutrophils # (auto) 5.6 uL; Nucleated Red Blood Cells % 0.3 %; Platelet Count (auto) 230 10^3/uL (140-450); Red Blood Cells 4.29 10^6/uL (4.0-5.20); White Blood Cell 7.5 10^3/uL (4.4-10.8)
[2017-12-04 15:56] LABS: BUN/Creatinine Ratio 18.1; Bilirubin, Total 0.4 mg/dL (0.2-1.0); Calcium 6.7 mg/dL (8.5-10.1); Magnesium 1.4 mg/dL (1.6-2.6); Total Protein 6.5 g/dL (6.4-8.2)
[2017-12-04 15:58] LABS: Potassium 2.3 mmol/L (3.5-5.1)
[2017-12-04] MEDS ORDERED: POTASSIUM CHL 20 Meq TABLET PO ONE (16:45)
[2017-12-04] MEDS: TEMAZEPAM 15 MG CAP PO PRN (21:23)
[2017-12-05] MEDS: LACTULOSE 20Gm/30ML SOLN PO SCH ×6 (01:35→20:38)
[2017-12-05] MEDS: SODIUM BICARBONATE 50ML VIAL 75 ML in D5W 5% 1,000 ML IV SCH ×2 (03:05→10:15)
[2017-12-05] MEDS: ACCU-CHEK COMFORT CURVE STRIP VI SCH ×6 (03:51→23:36)
[2017-12-05] MEDS: SODIUM BICARBONATE 650 MG TAB PO SCH ×3 (05:58→21:35)
[2017-12-05] MEDS: traMADol HCL 50 MG TAB PO PRN ×3 (05:58→21:36)
[2017-12-05 06:00] LABS: Basophils # (auto) 0 uL; Eosinophils # (auto) 0.1 uL; Hemoglobin 8.8 g/dL (12.2-16.2); Lymphocytes # (auto) 0.9 uL; Monocytes # (auto) 0.8 uL; White Blood Cell 5.1 10^3/uL (4.4-10.8)
[2017-12-05 06:01] LABS: BUN/Creatinine Ratio 19.7
[2017-12-05 06:02] LABS: Basophils % (auto) 0.5 % (0.0-2.0); Eosinophils % (auto) 2.3 % (0.0-7.0); Hematocrit 26.7 % (36.0-46.0); Lymphocytes % (auto) 16.8 % (10.0-50.0); Mean Corpuscular Volume 75.3 fL (80.0-100.0); Monocytes % (auto) 15.7 % (0.0-12.0); Neutrophils # (auto) 3.3 uL; Neutrophils % (auto) 64.7 % (37.0-80.0); Nucleated Red Blood Cells % 0.3 %; Platelet Count (auto) 186 10^3/uL (140-450); Red Blood Cells 3.54 10^6/uL (4.0-5.20)
[2017-12-05 06:05] VITALS: BP 138/91
[2017-12-05 06:05] LABS: Mean Corpuscular Hemoglobin 25.3 pg (28.0-32.0); Red Cell Distribution Width 20.8 % (11.8-14.3)
[2017-12-05 06:15] LABS: Calcium 5.7 mg/dL (8.5-10.1); Potassium 2.4 mmol/L (3.5-5.1)
[2017-12-05 09:00] VITALS: BP 136/95
[2017-12-05] MEDS: POTASSIUM CHL 20 Meq TABLET PO SCH (09:54)
[2017-12-05] MEDS: HYDROXYCHLOROQUINE SULFATE 200 MG TAB PO SCH (09:54)
[2017-12-05] MEDS: METOPROLOL TARTRATE 25 MG TAB PO SCH ×2 (09:54→21:36)
[2017-12-05] MEDS: cefTRIAXone 1GM/10ml IVPUSH 10 ML IV SCH (09:54)
[2017-12-05 13:00] VITALS: BP 141/95
[2017-12-05 17:00] VITALS: BP 150/102
[2017-12-05] MEDS ORDERED: POTASSIUM CHL 20 Meq TABLET PO ONE (17:00)
[2017-12-05] MEDS: MAGNESIUM SULFATE 1GM/100ML 100 ML IV SCH ×2 (17:13→19:03)
[2017-12-05] MEDS: CALCIUM CARB 500 MG CHEW TAB PO SCH (17:16)
[2017-12-05] MEDS: D5W/SOD CHL 0.45% 1,000 ML IV SCH (17:20)
[2017-12-05 22:00] VITALS: BP 154/92
[2017-12-06] MEDS: D5W/SOD CHL 0.45% 1,000 ML IV SCH ×3 (01:19→17:03)
[2017-12-06] MEDS: LACTULOSE 20Gm/30ML SOLN PO SCH ×6 (02:00→22:00)
[2017-12-06] MEDS: ACCU-CHEK COMFORT CURVE STRIP VI SCH ×5 (03:46→20:00)
[2017-12-06 05:21] VITALS: BP 152/98
[2017-12-06] MEDS: SODIUM BICARBONATE 650 MG TAB PO SCH ×3 (05:38→22:28)
[2017-12-06 06:51] LABS: Basophils # (auto) 0 uL; Eosinophils # (auto) 0.1 uL; Hemoglobin 9.5 g/dL (12.2-16.2); Lymphocytes # (auto) 0.6 uL; Monocytes # (auto) 0.7 uL
[2017-12-06 06:54] LABS: Basophils % (auto) 0.4 % (0.0-2.0); Eosinophils % (auto) 2.2 % (0.0-7.0); Hematocrit 29.3 % (36.0-46.0); Lymphocytes % (auto) 13.8 % (10.0-50.0); Mean Corpuscular Hemoglobin 24.6 pg (28.0-32.0); Mean Corpuscular Hgb Conc. 32.3 g/dL (32.0-36.0); Mean Corpuscular Volume 76.3 fL (80.0-100.0); Neutrophils % (auto) 67.6 % (37.0-80.0); Nucleated Red Blood Cells % 0.2 %; Platelet Count (auto) 176 10^3/uL (140-450); Red Blood Cells 3.84 10^6/uL (4.0-5.20); White Blood Cell 4.4 10^3/uL (4.4-10.8)
[2017-12-06 07:01] LABS: BUN/Creatinine Ratio 16.4
[2017-12-06 07:02] LABS: Red Cell Distribution Width 20.9 % (11.8-14.3)
[2017-12-06 07:03] LABS: Calcium 5.6 mg/dL (8.5-10.1); Potassium 2.7 mmol/L (3.5-5.1)
[2017-12-06] MEDS ORDERED: POTASSIUM CHL 20 Meq TABLET PO ONE (07:45)
[2017-12-06 08:44] VITALS: BP 144/94
[2017-12-06] MEDS: POTASSIUM CHL 20 Meq TABLET PO SCH (09:25)
[2017-12-06] MEDS: cefTRIAXone 1GM/10ml IVPUSH 10 ML IV SCH (09:25)
[2017-12-06] MEDS: CALCIUM CARB 500 MG CHEW TAB PO SCH ×3 (09:25→17:41)
[2017-12-06] MEDS: HYDROXYCHLOROQUINE SULFATE 200 MG TAB PO SCH (09:26)
[2017-12-06] MEDS: traMADol HCL 50 MG TAB PO PRN (09:26)
[2017-12-06] MEDS: METOPROLOL TARTRATE 25 MG TAB PO SCH ×2 (09:29→22:29)
[2017-12-06] MEDS: BOOST PLUS 8 ounce PO SCH ×2 (12:42→17:41)
[2017-12-06 13:39] VITALS: BP 155/104
[2017-12-06] MEDS ORDERED: LEVOFLOXACIN 500 MG TAB PO ONE (16:45)
[2017-12-06 16:46] VITALS: BP 157/102
[2017-12-06] MEDS: LORazepam 0.5 MG TAB PO PRN (17:00)
[2017-12-06 22:00] VITALS: BP 138/92
[2017-12-07] MEDS: ACCU-CHEK COMFORT CURVE STRIP VI SCH ×6 (00:19→20:05)
[2017-12-07] MEDS: traMADol HCL 50 MG TAB PO PRN ×2 (01:06→11:50)
[2017-12-07] MEDS: D5W/SOD CHL 0.45% 1,000 ML IV SCH ×3 (01:07→17:00)
[2017-12-07] MEDS: LACTULOSE 20Gm/30ML SOLN PO SCH ×6 (02:00→21:12)
[2017-12-07 05:00] VITALS: BP 132/83
[2017-12-07] MEDS: SODIUM BICARBONATE 650 MG TAB PO SCH ×3 (05:16→21:11)
[2017-12-07] MEDS: BOOST PLUS 8 ounce PO SCH ×3 (08:31→17:40)
[2017-12-07] MEDS: CALCIUM CARB 500 MG CHEW TAB PO SCH ×3 (08:31→17:40)
[2017-12-07 08:47] VITALS: BP 148/91
[2017-12-07] MEDS: POTASSIUM CHL 20 Meq TABLET PO SCH ×2 (10:18→21:12)
[2017-12-07] MEDS: HYDROXYCHLOROQUINE SULFATE 200 MG TAB PO SCH (10:18)
[2017-12-07] MEDS: LEVOFLOXACIN 250 MG TAB PO SCH (10:18)
[2017-12-07] MEDS: METOPROLOL TARTRATE 25 MG TAB PO SCH ×2 (10:20→21:13)
[2017-12-07 12:52] VITALS: BP 151/100
[2017-12-07 17:00] VITALS: BP 152/93
[2017-12-07] MEDS: LORazepam 0.5 MG TAB PO PRN (21:11)
[2017-12-07 22:16] VITALS: BP 133/87
[2017-12-07] MEDS ORDERED: POTASSIUM CHL 20 Meq TABLET PO ONE (23:15)
[2017-12-08] MEDS ORDERED: POTASSIUM CHL 20 Meq TABLET PO ONE (02:00)
[2017-12-08] MEDS: LACTULOSE 20Gm/30ML SOLN PO SCH ×5 (02:00→17:40)
[2017-12-08] MEDS: TEMAZEPAM 15 MG CAP PO PRN (02:04)
[2017-12-08 05:36] VITALS: BP 118/74
[2017-12-08] MEDS: BOOST PLUS 8 ounce PO SCH ×3 (08:00→17:40)
[2017-12-08 08:17] LABS: Basophils # (auto) 0 uL; Eosinophils # (auto) 0.2 uL; Hemoglobin 10.4 g/dL (12.2-16.2); Lymphocytes # (auto) 0.9 uL; Monocytes # (auto) 0.4 uL; White Blood Cell 3.9 10^3/uL (4.4-10.8)
[2017-12-08 08:21] LABS: Basophils % (auto) 0.6 % (0.0-2.0); Eosinophils % (auto) 4.1 % (0.0-7.0); Hematocrit 33.1 % (36.0-46.0); Lymphocytes % (auto) 21.6 % (10.0-50.0); Mean Corpuscular Hemoglobin 24.7 pg (28.0-32.0); Mean Corpuscular Hgb Conc. 31.4 g/dL (32.0-36.0); Mean Corpuscular Volume 78.7 fL (80.0-100.0); Neutrophils # (auto) 2.5 uL; Neutrophils % (auto) 63.7 % (37.0-80.0); Nucleated Red Blood Cells % 0.2 %; Platelet Count (auto) 157 10^3/uL (140-450); Red Blood Cells 4.21 10^6/uL (4.0-5.20)
[2017-12-08 08:22] LABS: BUN/Creatinine Ratio 14.7; Calcium 7.6 mg/dL (8.5-10.1); Potassium 4.7 mmol/L (3.5-5.1)
[2017-12-08 08:24] LABS: Red Cell Distribution Width 21.6 % (11.8-14.3)
[2017-12-08 09:00] VITALS: BP 147/89
[2017-12-08] MEDS: CALCIUM CARB 500 MG CHEW TAB PO SCH ×3 (09:39→17:40)
[2017-12-08] MEDS: LEVOFLOXACIN 250 MG TAB PO SCH (09:39)
[2017-12-08] MEDS: METOPROLOL TARTRATE 25 MG TAB PO SCH (09:39)
[2017-12-08] MEDS: POTASSIUM CHL 20 Meq TABLET PO SCH (09:40)
[2017-12-08] MEDS: HYDROXYCHLOROQUINE SULFATE 200 MG TAB PO SCH (09:41)
[2017-12-08 16:08] VITALS: BP 149/92
[2017-12-08] MEDS: LORazepam 0.5 MG TAB PO PRN (19:42)
[2017-12-08 21:01] VITALS: BP 147/98
== END 2017-12-08 21:50 | disposition left against medical advice (07) | DRG 279 ==
LOC: ER 07:37 → TELE 07:38 → DOU IN ICU 23:46 → TELE-WESTW 12-03 02:37 → CENTRAL 12-04 14:43 → TELE-WESTW 12-04 15:34 → CENTRAL 12-08 05:50
PROVIDERS: ADMIT Internal Medicine; ATTEND Internal Medicine
PROC: 5A09357 Assistance with Respiratory Ventilation, Less than 24 Consecutive Hours, Continuous Positive Airway Pressure (ICD-10-PCS; principal; 2017-12-03)
PROC: 5A09357 Assistance with Respiratory Ventilation, Less than 24 Consecutive Hours, Continuous Positive Airway Pressure (ICD-10-PCS; 2017-12-04)
DX: K72.90 Hepatic failure, unspecified without coma (principal); N17.0 Acute kidney failure with tubular necrosis; J96.90 Respiratory failure, unspecified, unspecified whether with hypoxia or hypercapnia; E87.2 Acidosis; E87.0 Hyperosmolality and hypernatremia; N18.4 Chronic kidney disease, stage 4 (severe); I42.9 Cardiomyopathy, unspecified; N13.30 Unspecified hydronephrosis; E83.51 Hypocalcemia; E11.22 Type 2 diabetes mellitus with diabetic chronic kidney disease; N39.0 Urinary tract infection, site not specified; E87.6 Hypokalemia; F32.9 Major depressive disorder, single episode, unspecified; K80.20 Calculus of gallbladder without cholecystitis without obstruction; N31.2 Flaccid neuropathic bladder, not elsewhere classified; K74.60 Unspecified cirrhosis of liver; I12.9 Hypertensive chronic kidney disease with stage 1 through stage 4 chronic kidney disease, or unspecified chronic kidney disease; E86.9 Volume depletion, unspecified; B19.20 Unspecified viral hepatitis C without hepatic coma; M19.90 Unspecified osteoarthritis, unspecified site; M54.2 Cervicalgia; M54.9 Dorsalgia, unspecified; M79.1 Myalgia; J44.9 Chronic obstructive pulmonary disease, unspecified; D72.829 Elevated white blood cell count, unspecified; G89.29 Other chronic pain; Z80.1 Family history of malignant neoplasm of trachea, bronchus and lung; Z82.5 Family history of asthma and other chronic lower respiratory diseases; Z82.49 Family history of ischemic heart disease and other diseases of the circulatory system; Z83.3 Family history of diabetes mellitus; Z88.1 Allergy status to other antibiotic agents; Z88.0 Allergy status to penicillin; Z88.2 Allergy status to sulfonamides; Z88.8 Allergy status to other drugs, medicaments and biological substances
CPT/HCPCS: 36415; 36600; 71046; 74176; 76775; 80048; 80053; 80061; 81001; 82140; 82150; 82270; 82378; 82805; 82962; 83036; 83605; 83690; 83735; 83880; 84132; 84702; 85025; 85610; 85652; 85730; 86141; 87040; 87081; 87086; 87088; 87186; 93306; 94660; 96361; 96374; 96375; J2001; J2270; J3480